=== PATIENT | female | born 1965 | race Caucasian/White ===

== ENCOUNTER → 2016-04-29 | Outpatient (CLI) | payer OTHER ==
[2015-12-18 15:15] VITALS: BP 118/63
[~2016-04-29] MED LIST: ACET325T9 PO; ALPR0.25 PO; DEXT30CA6 PO; DOCU-27 PO; FERR325T31 PO; LACT20SO PO; LEVO100T5 PO; METO10TA81 PO; PANT40TA3 PO; PROP60CA8 PO; RIFA550T PO; SPIR100T2 PO; SUCR1ORA2 PO; URSO300C3 PO; ZOLP10TA PO
[2016-04-29 07:49] LABS: BASO % 1 % (0-3); EOS % 1 % (0-3); HEMATOCRIT 41.4 % (36.0-47.0); HEMOGLOBIN 13.6 g/dL (12.0-15.5); LYMPH # 1.7 x10^3/uL (1.0-4.8); LYMPH % 31 % (24-48); MEAN CORPUSCULAR HEMOGLOBIN 30 pg (25-35); MEAN CORPUSCULAR HGB CONC 33 g/dL (31-37); MEAN CORPUSCULAR VOLUME 90 fL (79-100); MONO % 10 % (0-9); NEUT % 58 % (31-73); PLATELET COUNT 167 x10^3/uL (140-400); RED BLOOD COUNT 4.58 x10^6/uL (3.50-5.40); RED CELL DISTRIBUTION WIDTH 14.5 % (11.5-14.5); WHITE BLOOD COUNT 5.6 x10^3/uL (4.0-11.0)
[2016-04-29 07:59] LABS: INR 1.2 (0.8-1.1); PROTHROMBIN TIME PATIENT 14.3 SEC (11.7-14.0)
[2016-04-29 08:02] LABS: ALBUMIN 3.2 g/dL (3.4-5.0); ALBUMIN/GLOBULIN RATIO 0.8 (1.0-1.7); CALCIUM 9.4 mg/dL (8.5-10.1); CREATININE 0.9 mg/dL (0.6-1.0); GFR 65.8; POTASSIUM 3.5 mmol/L (3.5-5.1); TOTAL BILIRUBIN 0.7 mg/dL (0.2-1.0); TOTAL PROTEIN 7.4 g/dL (6.4-8.2)
== END | disposition home or self-care (01) ==
LOC: LAB 07:10
PROVIDERS: ATTEND Internal Medicine
DX: K74.69 Other cirrhosis of liver (principal); E03.9 Hypothyroidism, unspecified
CPT/HCPCS: 36415; 80053; 84443; 85027; 85610

== ENCOUNTER → 2016-05-19 | Outpatient (CLI) | payer OTHER ==
[2015-12-18 15:15] VITALS: BP 118/63
--- NOTE | 2016-05-20 15:15 | CARD ---
APPROVED REPORT EXAM: Two-dimensional and M-mode echocardiogram with Doppler and color Doppler. Other Information Quality : GoodHR: 81bpm Rhythm : NSR INDICATION Palpitations Short of air Echo Enhancing Agent Indication: Rule Out Septal Defect Agent/Amount Used: Agitated Saline 16mL 2D DIMENSIONS RVDd1.9 (2.9-3.5cm)Left Atrium(2D)2.9 (1.6-4.0cm) IVSd0.7 (0.7-1.1cm)Aortic Root(2D)2.3 (2.0-3.7cm) LVDd4.0 (3.9-5.9cm)LVOT Diameter2.0 (1.8-2.4cm) PWd0.8 (0.7-1.1cm)LVDs2.4 (2.5-4.0cm) FS (%) 38.8 %SV48.1 ml LVEF(%)69.0 (>50%) Aortic Valve AoV Peak Tello.163.0cm/sAoV VTI32.0cm AO Peak GR.10.6mmHgLVOT VTI 21.22cm AO Mean GR.5mmHg Mitral Valve MV E Hwhtjdll389.6cm/sMV E Peak Gr.4mmHg MV DECEL [id number] A Vkkvwydb69.1cm/s MV E Mean Gr.3mmHgE/A Ratio1.2 MV A [id number] TDI Lateral E' P. V15.10cm/sMedial E' P. V11.45cm/s E/Lateral E'6.7E/Medial E'8.9 Pulmonary Vein S1 Ncvazdtu83.1cm/sS2 Kqhfrjxu56.72cm/s D2 Szwmzopy05.7cm/sPVa usuiumqo31cvyl LEFT VENTRICLE The left ventricle is normal size. There is normal left ventricular wall thickness. The left ventricu lar systolic function is normal and the ejection fraction is within normal range. The Ejection Fracti on is 69%. There is normal LV segmental wall motion. The left ventricular diastolic function and fill ing is normal for age. RIGHT VENTRICLE The right ventricle is normal size. There is normal right ventricular wall thickness. The right ventr icular systolic function is normal. ATRIA The left atrium size is normal. The right atrium size is normal. Doppler suggests left to right inter atrial shunt. Injection of bubbles documented an interatrial shunt. AORTIC VALVE The aortic valve is mildly sclerotic. The aortic valve is trileaflet. Doppler and Color Flow revealed no significant aortic regurgitation. There is no significant aortic valvular stenosis. MITRAL VALVE Mitral annular calcification is mild. The mitral valve leaflets are thickened. There is no evidence o f mitral valve prolapse. There is no mitral valve stenosis. Doppler and Color Flow revealed trace chace ral regurgitation. TRICUSPID VALVE The tricuspid valve is normal in structure and function. Doppler and Color Flow revealed no tricuspid valve regurgitation noted. There is no pulmonary hypertension. PULMONIC VALVE Doppler and Color Flow revealed no pulmonic valvular regurgitation. GREAT VESSELS The aortic root is normal in size. The ascending aorta is normal in size. The pulmonary artery is nor mal. The IVC is normal in size and collapses >50% with inspiration. PERICARDIAL EFFUSION There is no evidence of significant pericardial effusion. Critical Notification Critical Value: No <Conclusion> The left ventricular systolic function is normal and the ejection fraction is within normal range. The Ejection Fraction is 69%. Doppler suggests left to right interatrial shunt. Injection of bubbles documented an interatrial shunt. The left atrium size is normal. The right atrium size is normal. The aortic valve is mildly sclerotic. The aortic valve is trileaflet. Mitral annular calcification is mild. The mitral valve leaflets are thickened. Doppler and Color Flow revealed trace mitral regurgitation. The tricuspid valve is normal in structure and function. Doppler and Color Flow revealed no pulmonic valvular regurgitation. The IVC is normal in size and collapses >50% with inspiration. There is no evidence of significant pericardial effusion.
== END | disposition home or self-care (01) ==
LOC: ECHO 10:30
PROVIDERS: ATTEND Internal Medicine Cardiovascular Disease
DX: I35.8 Other nonrheumatic aortic valve disorders (principal); I34.8 Other nonrheumatic mitral valve disorders; I34.0 Nonrheumatic mitral (valve) insufficiency; R06.02 Shortness of breath
CPT/HCPCS: C8929

== ENCOUNTER → 2016-09-03 | Outpatient (CLI) | payer OTHER ==
[2015-12-18 15:15] VITALS: BP 118/63
[~2016-09-03] MED LIST changes: +DOCU-109 PO; -DOCU-27 PO; +FERR-36 PO; -FERR325T31 PO; -RIFA550T PO; +RIFA550T4 PO; -SUCR1ORA2 PO; +SUCR1ORA5 PO; +URSO300C26 PO; -URSO300C3 PO
--- NOTE | 2016-09-03 09:28 | RAD ---
Limited ultrasound evaluation of the abdomen including duplex evaluation of the patient's TIPS shunt. 09/03/2016 Indication: Abdominal pain. Comparison study: Ultrasound evaluation of TIPS shunt February 27, 2016 Discussion: Ultrasound evaluation of the TIPS shunt was performed including color Doppler imaging spectral analysis. The TIPS shunt is grossly patent on color Doppler imaging. Portal end of TIPS shunt is a velocity measurement 41 cm/s, middle portion of the TIPS shunt has a velocity measurement of 82 cm/s. Hepatic end of the TIPS shunt has a velocity measurement of 102 cm/s. Hepatopedal flow is seen in the right and left portal veins. The main portal vein is also hepatopedal. Visualized hepatic veins are patent. There is decreased velocity within the portal and of the TIPS shunt. Normal TIPS velocities range from approximately 80-180 cm/s. Comparison is made to exam from February 27, 2016. At that time, velocities were low, and in fact slightly lower than on today's exam. No ascites is identified. Impression: No definitive sonographic evidence of significant stenosis within the TIPS shunt. Mildly low velocities are seen within the portal end of the TIPS shunt, similar to comparison exam.
== END | disposition home or self-care (01) ==
LOC: US 13:07
PROVIDERS: ATTEND Internal Medicine
DX: K74.69 Other cirrhosis of liver (principal); Z95.828 Presence of other vascular implants and grafts
CPT/HCPCS: 93975

== ENCOUNTER → 2016-09-06 | Outpatient (CLI) | payer OTHER ==
[2015-12-18 15:15] VITALS: BP 118/63
[2016-09-06 15:34] LABS: BASO % 0 % (0-3); EOS % 1 % (0-3); HEMATOCRIT 43.8 % (36.0-47.0); HEMOGLOBIN 14.6 g/dL (12.0-15.5); LYMPH # 1.3 x10^3/uL (1.0-4.8); LYMPH % 21 % (24-48); MEAN CORPUSCULAR HEMOGLOBIN 30 pg (25-35); MEAN CORPUSCULAR HGB CONC 33 g/dL (31-37); MEAN CORPUSCULAR VOLUME 89 fL (79-100); MONO % 10 % (0-9); NEUT % 69 % (31-73); PLATELET COUNT 172 x10^3/uL (140-400); RED BLOOD COUNT 4.92 x10^6/uL (3.50-5.40); RED CELL DISTRIBUTION WIDTH 14.4 % (11.5-14.5); WHITE BLOOD COUNT 6.3 x10^3/uL (4.0-11.0)
[2016-09-06 15:43] LABS: INR 1.2 (0.8-1.1); PROTHROMBIN TIME PATIENT 14.5 SEC (11.7-14.0)
[2016-09-06 15:49] LABS: ALBUMIN 3.1 g/dL (3.4-5.0); ALBUMIN/GLOBULIN RATIO 0.7 (1.0-1.7); CALCIUM 9.2 mg/dL (8.5-10.1); CREATININE 0.8 mg/dL (0.6-1.0); GFR 75.3; POTASSIUM 3.8 mmol/L (3.5-5.1); TOTAL BILIRUBIN 1.2 mg/dL (0.2-1.0); TOTAL PROTEIN 7.3 g/dL (6.4-8.2)
== END | disposition home or self-care (01) ==
LOC: LAB 14:59
PROVIDERS: ATTEND Internal Medicine
DX: R10.11 Right upper quadrant pain (principal); E03.9 Hypothyroidism, unspecified; K74.3 Primary biliary cirrhosis
CPT/HCPCS: 36415; 80053; 83690; 84443; 85027; 85610; 85651

== ENCOUNTER → 2016-09-15 | Outpatient (CLI) | payer OTHER ==
[2015-12-18 15:15] VITALS: BP 118/63
--- NOTE | 2016-09-15 10:05 | RAD ---
Indication:Recent evaluation of TIPS. Right upper quadrant pain. Chronic nausea. Abnormal liver function tests Grayscale images of the abdomen were obtained. Comparison none. Note is made of an hepatic duplex study demonstrating a patent TIPS 09/03/26 Liver:The surface of the liver has a somewhat irregular contour compatible with a cirrhotic liver. A focal mass lesion is not seen and the visualized liver. Patent TIPS is noted. Gallbladder:Surgically absent.. Common bile duct diameter of approximately 11 mm is likely a function of the postcholecystectomy state Spleen:Mildly enlarged but otherwise unremarkable Pancreas:The visualized head and proximal body appeared normal. The distal body and tail were partially obscured. The pancreatic duct measures approximately 2 mm Kidneys:No hydronephrosis or solid mass is seen associated with either Abdominal aorta and IVC:Normal Ancillary findings:None Impression:Contour irregularity associated with the liver compatible with a cirrhotic liver. Splenomegaly compatible with portal hypertension. Mildly prominent common bile duct likely a function of the postcholecystectomy state. Pancreas partially obscured
== END | disposition home or self-care (01) ==
LOC: US 08:48
PROVIDERS: ATTEND Internal Medicine
DX: R10.11 Right upper quadrant pain (principal); R79.89 Other specified abnormal findings of blood chemistry; Z90.49 Acquired absence of other specified parts of digestive tract; R16.1 Splenomegaly, not elsewhere classified
CPT/HCPCS: 76700

== ENCOUNTER → 2016-11-12 | Outpatient (CLI) | payer OTHER ==
[2015-12-18 15:15] VITALS: BP 118/63
[2016-11-12 14:48] LABS: BASO % 0 % (0-3); EOS % 0 % (0-3); HEMOGLOBIN 13.9 g/dL (12.0-15.5); LYMPH # 1.6 x10^3/uL (1.0-4.8); LYMPH % 26 % (24-48); MEAN CORPUSCULAR HEMOGLOBIN 30 pg (25-35); MEAN CORPUSCULAR HGB CONC 35 g/dL (31-37); MEAN CORPUSCULAR VOLUME 87 fL (79-100); MONO % 7 % (0-9); NEUT % 67 % (31-73); PLATELET COUNT 154 x10^3/uL (140-400); RED CELL DISTRIBUTION WIDTH 13.8 % (11.5-14.5); WHITE BLOOD COUNT 6.3 x10^3/uL (4.0-11.0)
[2016-11-12 15:00] LABS: ALBUMIN 3.2 g/dL (3.4-5.0); ALBUMIN/GLOBULIN RATIO 0.8 (1.0-1.7); CALCIUM 8.9 mg/dL (8.5-10.1); CREATININE 0.8 mg/dL (0.6-1.0); GFR 75.3; POTASSIUM 3.8 mmol/L (3.5-5.1); TOTAL BILIRUBIN 0.5 mg/dL (0.2-1.0); TOTAL PROTEIN 7.2 g/dL (6.4-8.2)
[2016-11-12 15:05] LABS: INR 1.2 (0.8-1.1); PROTHROMBIN TIME PATIENT 14.7 SEC (11.7-14.0)
== END | disposition home or self-care (01) ==
LOC: LAB 14:15
PROVIDERS: ATTEND Internal Medicine
DX: E03.9 Hypothyroidism, unspecified (principal)
CPT/HCPCS: 36415; 80053; 84443; 85025; 85610

== ENCOUNTER → 2016-11-26 | Outpatient (CLI) | payer OTHER ==
[2015-12-18 15:15] VITALS: BP 118/63
[2016-11-26 08:21] LABS: BASO % 0 % (0-3); EOS % 2 % (0-3); HEMATOCRIT 43.9 % (36.0-47.0); HEMOGLOBIN 14.8 g/dL (12.0-15.5); LYMPH # 1.3 x10^3/uL (1.0-4.8); LYMPH % 25 % (24-48); MEAN CORPUSCULAR HEMOGLOBIN 30 pg (25-35); MEAN CORPUSCULAR HGB CONC 34 g/dL (31-37); MEAN CORPUSCULAR VOLUME 89 fL (79-100); MONO % 9 % (0-9); NEUT % 65 % (31-73); PLATELET COUNT 163 x10^3/uL (140-400); RED BLOOD COUNT 4.92 x10^6/uL (3.50-5.40); RED CELL DISTRIBUTION WIDTH 14.4 % (11.5-14.5); WHITE BLOOD COUNT 5.1 x10^3/uL (4.0-11.0)
[2016-11-26 08:30] LABS: INR 1.2 (0.8-1.1)
[2016-11-26 08:42] LABS: ALBUMIN 3.1 g/dL (3.4-5.0); ALBUMIN/GLOBULIN RATIO 0.7 (1.0-1.7); CALCIUM 9.6 mg/dL (8.5-10.1); CREATININE 0.9 mg/dL (0.6-1.0); GFR 65.8; POTASSIUM 3.9 mmol/L (3.5-5.1); TOTAL BILIRUBIN 0.8 mg/dL (0.2-1.0); TOTAL PROTEIN 7.3 g/dL (6.4-8.2)
[2016-11-26 15:29] LABS: HEP A TOTAL ABDY Negative (Negative); HEP B SURFACE ABDY Reactive (.)
[2016-11-30 20:13] LABS: VITAMIN D25(OH)TOTAL 23.2 ng/mL (30.0-100.0)
== END | disposition home or self-care (01) ==
LOC: LAB 07:55
PROVIDERS: ATTEND Internal Medicine
DX: K74.3 Primary biliary cirrhosis (principal)
CPT/HCPCS: 36415; 80053; 82105; 82306; 85025; 85610; 86706; 86708; 87340; 87341

== ENCOUNTER → 2016-11-27 | Outpatient (CLI) | payer OTHER ==
[2015-12-18 15:15] VITALS: BP 118/63
[2016-11-29 10:14] LABS: GLUCOSE,URINE NEGATIVE (NEG)
[2016-11-29 10:15] LABS: BILIRUBIN,URINE NEGATIVE (NEG); NITRITE,URINE POSITIVE (NEG); PROTEIN,URINE NEGATIVE (NEG-TRACE); RBC,URINE 0 /HPF (0-2); UROBILINOGEN,URINE 0.2 mg/dL (0.2 mg/dL)
[2016-11-29 10:16] LABS: BACTERIA,URINE MANY /HPF (0-FEW); SQUAMOUS EPITHELIAL CELL,UR FEW /LPF
== END | disposition home or self-care (01) ==
LOC: LAB 11:58
PROVIDERS: ATTEND Internal Medicine
DX: R30.0 Dysuria (principal)
CPT/HCPCS: 81001; 87086

== ENCOUNTER 2017-01-08 13:15 | Emergency (ER) | payer OTHER ==
[~2017-01-08] VITALS: Ht 160 cm; Wt 60.3 kg
[2017-01-08 13:19] VITALS: BP 135/63
--- NOTE | 2017-01-08 13:45 | PHYS DOC ---
Past Medical History Past Medical History: Hypothyroid, Liver Disease, Other Additional Past Medical Histor: ENCEPHODERMALOPATHY, SCLERODERMA,PBC, ESOPHAGEAL VARCIES,TIMOTHY Past Surgical History: Cholecystectomy, , Tubal ligation Additional Past Surgical Histo: TIPS,BREAST AUGUMENTATION, ESOPHAGEAL COILS/ BANDS Alcohol Use: None Drug Use: None Adult General Chief Complaint Chief Complaint: PAIN ON URINATION HPI HPI Patient is a 51 year old female presenting to the emergency department for evaluation of right flank pain lower abdominal and back pain along with dysuria and foul-smelling urine. It with a 10 day course of ciprofloxacin last month that she had an abnormal urinalysis on November 29. The culture results it throughout Citrobacter friendii. According to the sensitivities it is sensitive to ciprofloxacin. Review of Systems Review of Systems Constitutional: Denies fever or chills [] GI: + abdominal pain : + dysuria Musculoskeletal: + back pain All other systems were reviewed and found to be within normal limits, except as documented in this note. Allergies Allergies Allergies Coded Allergies Type Severity Reaction Last Updated Verified Iodinated Contrast- Oral and IV Dye Allergy Severe throat swelling 08/07/15 Yes Sulfa (Sulfonamide Antibiotics) Allergy Intermediate rash 08/07/15 Yes meperidine Adverse Reaction Intermediate n/v 08/07/15 Yes Uncoded Allergies Type Severity Reaction Last Updated Verified BLOOD TRANSFUSION Adverse Reaction Intermediate RASH, FEVER 07/02/15 Physical Exam Physical Exam Constitutional: Well developed, well nourished, no acute distress, non-toxic appearance. [] \ Current Patient Data Vital Signs Vital Signs Date Time Temp Pulse Resp B/P (MAP) Pulse Ox O2 Delivery O2 Flow Rate FiO2 01/08/17 13:19 98.3 83 14 99 Room Air 98.3 Lab Values Laboratory Tests Test 01/08/17 13:40 Urine Collection Type Unknown Urine Color Yellow Urine Clarity Clear Urine pH 6.5 Urine Specific Coldiron 1.020 Urine Protein Negative mg/dL (NEG-TRACE) Urine Glucose (UA) Negative mg/dL (NEG) Urine Ketones (Stick) Negative mg/dL (NEG) Urine Blood Negative (NEG) Urine Nitrite Negative (NEG) Urine Bilirubin Negative (NEG) Urine Urobilinogen Dipstick 0.2 mg/dL (0.2 mg/dL) Urine Leukocyte Esterase Small (NEG) Urine RBC 0 /HPF (0-2) Urine WBC 11-20 /HPF (0-4) Urine Squamous Epithelial Cells Few /LPF Urine Bacteria Moderate /HPF (0-FEW) Urine Mucus Mod /LPF EKG EKG [] Radiology/Procedures Radiology/Procedures [] Course & Med Decision Making Course & Med Decision Making UA consistent with urinary tract infection. Will start on another 10 day course of Cipro provide Pyridium encourage fluids and appropriate follow-up. Dragon Disclaimer Dragon Disclaimer This electronic medical record was generated, in whole or in part, using a voice recognition dictation system. Departure Departure Impression: Primary Impression: UTI (urinary tract infection) Disposition: HOME, SELF-CARE Condition: STABLE Referrals: TITO VERA MD (PCP) Patient Instructions: Urinary Tract Infection Scripts Phenazopyridine Hcl (PYRIDIUM) 200 Mg Tablet 200 MG PO TID Y for dysuria, #6 TAB Prov: DARIUSZ KANG DO 01/08/17 Ciprofloxacin Hcl (CIPRO) 500 Mg Tablet 1 TAB PO BID, #20 TAB Prov: DARIUSZ KANG DO 01/08/17 Problem Qualifiers Primary Impression: UTI (urinary tract infection) Urinary tract infection type: site unspecified Hematuria presence: without hematuria Qualified Codes: N39.0 - Urinary tract infection, site not specified DARIUSZ KANG DO Jan 08, 2017 13:45
[2017-01-08 13:51] LABS: BILIRUBIN,URINE NEGATIVE (NEG); GLUCOSE,URINE NEGATIVE (NEG); NITRITE,URINE NEGATIVE (NEG); PH,URINE 6.5; PROTEIN,URINE NEGATIVE (NEG-TRACE); UROBILINOGEN,URINE 0.2 mg/dL (0.2 mg/dL)
[2017-01-08 14:03] LABS: BACTERIA,URINE MODERATE /HPF (0-FEW); RBC,URINE 0 /HPF (0-2); SQUAMOUS EPITHELIAL CELL,UR FEW /LPF
[2017-01-08] MEDS ORDERED: PHEN-318 PO (14:44)
[2017-01-08] MEDS ORDERED: CIPR500T94 PO (14:44)
[2017-01-08 15:04] LABS: BASO # 0.1 x10^3/uL (0.0-0.2); BASO % 2 % (0-3); EOS % 1 % (0-3); HEMATOCRIT 39.6 % (36.0-47.0); HEMOGLOBIN 13.3 g/dL (12.0-15.5); LYMPH # 1.5 x10^3/uL (1.0-4.8); LYMPH % 28 % (24-48); MEAN CORPUSCULAR HEMOGLOBIN 30 pg (25-35); MEAN CORPUSCULAR HGB CONC 34 g/dL (31-37); MEAN CORPUSCULAR VOLUME 90 fL (79-100); MONO % 9 % (0-9); NEUT % 60 % (31-73); PLATELET COUNT 139 x10^3/uL (140-400); RED BLOOD COUNT 4.42 x10^6/uL (3.50-5.40); RED CELL DISTRIBUTION WIDTH 14.2 % (11.5-14.5); WHITE BLOOD COUNT 5.2 x10^3/uL (4.0-11.0)
[2017-01-08 15:11] LABS: CREATININE 0.8 mg/dL (0.6-1.0); GFR 75.3; POTASSIUM 3.6 mmol/L (3.5-5.1)
[2017-01-08 15:17] LABS: ALBUMIN 3.1 g/dL (3.4-5.0); ALBUMIN/GLOBULIN RATIO 0.8 (1.0-1.7); TOTAL BILIRUBIN 0.4 mg/dL (0.2-1.0)
== END 2017-01-08 15:27 | disposition home or self-care (01) ==
LOC: ER 13:15
DX: N39.0 Urinary tract infection, site not specified (principal); E03.9 Hypothyroidism, unspecified; Z88.2 Allergy status to sulfonamides; Z90.49 Acquired absence of other specified parts of digestive tract; Z98.51 Tubal ligation status; Z91.041 Radiographic dye allergy status; Z88.8 Allergy status to other drugs, medicaments and biological substances
CPT/HCPCS: 36415; 80053; 81001; 83690; 85025; 87086; 87186; 99284

== ENCOUNTER → 2017-02-15 | Outpatient (CLI) | payer OTHER ==
[~2017-02-15] MED LIST changes: +CIPR500T94 PO; +PHEN-318 PO
[2017-02-15 14:38] LABS: BILIRUBIN,URINE NEGATIVE (NEG); GLUCOSE,URINE NEGATIVE (NEG); NITRITE,URINE POSITIVE (NEG); PH,URINE 6.5; PROTEIN,URINE NEGATIVE (NEG-TRACE); UROBILINOGEN,URINE 0.2 mg/dL (0.2 mg/dL)
[2017-02-15 14:53] LABS: BACTERIA,URINE MANY /HPF (0-FEW); RBC,URINE 0 /HPF (0-2); SQUAMOUS EPITHELIAL CELL,UR FEW /LPF; WBC,URINE OCC /HPF (0-4)
== END | disposition home or self-care (01) ==
LOC: LAB 11:34
PROVIDERS: ATTEND Internal Medicine
DX: R30.0 Dysuria (principal)
CPT/HCPCS: 81001; 87086

== ENCOUNTER 2017-03-11 13:33 | Emergency (ER) | payer OTHER | END 2017-03-11 14:50 | disposition home or self-care (01) | LOC: ER 13:33 | DX: S30.810A Abrasion of lower back and pelvis, initial encounter (principal); S20.211A Contusion of right front wall of thorax, initial encounter; E03.9 Hypothyroidism, unspecified; Z88.5 Allergy status to narcotic agent; Z88.2 Allergy status to sulfonamides; Z91.041 Radiographic dye allergy status; W00.2XXA Other fall from one level to another due to ice and snow, initial encounter; Y93.89 Activity, other specified; Y92.481 Parking lot as the place of occurrence of the external cause; Y99.8 Other external cause status | CPT/HCPCS: 71101; 72100; 73080; 99284 ==

== ENCOUNTER → 2017-04-13 | Outpatient (CLI) | payer OTHER ==
[2017-04-13 08:11] LABS: ADD MAN DIFF? NO
[2017-04-13 08:27] LABS: BASO % 0 % (0-3); EOS # 0.1 x10^3/uL (0.0-0.7); EOS % 2 % (0-3); HEMOGLOBIN 14.2 g/dL (12.0-15.5); LYMPH # 1.9 x10^3/uL (1.0-4.8); LYMPH % 39 % (24-48); MEAN CORPUSCULAR HEMOGLOBIN 29 pg (25-35); MEAN CORPUSCULAR HGB CONC 33 g/dL (31-37); MEAN CORPUSCULAR VOLUME 89 fL (79-100); MONO # 0.5 x10^3/uL (0.0-1.1); MONO % 10 % (0-9); NEUT # 2.4 x10^3uL (1.8-7.7); NEUT % 49 % (31-73); PLATELET COUNT 163 x10^3/uL (140-400); RED BLOOD COUNT 4.82 x10^6/uL (3.50-5.40); RED CELL DISTRIBUTION WIDTH 14.5 % (11.5-14.5); WHITE BLOOD COUNT 4.9 x10^3/uL (4.0-11.0)
[2017-04-13 08:39] LABS: ALBUMIN 3.3 g/dL (3.4-5.0); ALBUMIN/GLOBULIN RATIO 0.8 (1.0-1.7); ALK PHOS 136 U/L (46-116); ALT (SGPT) 32 U/L (14-59); ANION GAP 10 (6-14); AST (SGOT) 30 U/L (15-37); BLOOD UREA NITROGEN 10 mg/dL (7-20); BUN/CREATININE RATIO 14 (6-20); CALCIUM 9.4 mg/dL (8.5-10.1); CARBON DIOXIDE 26 mmol/L (21-32); CHLORIDE 105 mmol/L (98-107); CREATININE 0.7 mg/dL (0.6-1.0); GFR 87.5; GLUCOSE 101 mg/dL (70-99); POTASSIUM 3.7 mmol/L (3.5-5.1); SODIUM 141 mmol/L (136-145); TOTAL BILIRUBIN 0.5 mg/dL (0.2-1.0); TOTAL PROTEIN 7.5 g/dL (6.4-8.2)
[2017-04-13 08:47] LABS: INR 1.2 (0.8-1.1)
[2017-04-13 16:40] LABS: BILIRUBIN,URINE NEGATIVE (NEG); CLARITY,URINE CLEAR; COLOR,URINE YELLOW; GLUCOSE,URINE NEGATIVE (NEG); NITRITE,URINE NEGATIVE (NEG); PROTEIN,URINE NEGATIVE (NEG-TRACE); UROBILINOGEN,URINE 0.2 mg/dL (0.2 mg/dL)
[2017-04-13 16:53] LABS: BACTERIA,URINE MANY /HPF (0-FEW); RBC,URINE 0 /HPF (0-2); SQUAMOUS EPITHELIAL CELL,UR FEW /LPF
[2017-04-13 20:12] LABS: AFPT MARKER 2.9 ng/mL (0.0-8.3)
== END | disposition home or self-care (01) ==
LOC: LAB 07:38
DX: K74.3 Primary biliary cirrhosis (principal)
CPT/HCPCS: 36415; 80053; 81001; 82105; 85025; 85610; 87086; 87186

== ENCOUNTER → 2017-05-02 | Outpatient (CLI) | payer OTHER | END | disposition home or self-care (01) | LOC: KCIC DEXA 12:02 | DX: Z13.820 Encounter for screening for osteoporosis (principal); M85.88 Other specified disorders of bone density and structure, other site; K74.60 Unspecified cirrhosis of liver; K83.0 Cholangitis | CPT/HCPCS: 77080 ==

== ENCOUNTER → 2017-05-05 | Outpatient (CLI) | payer OTHER | END | disposition home or self-care (01) | LOC: US 06:58 | DX: K74.3 Primary biliary cirrhosis (principal) | CPT/HCPCS: 93976 ==

== ENCOUNTER → 2017-10-14 | Outpatient (CLI) | payer OTHER ==
[2017-03-11 13:35] VITALS: BP 151/76
[~2017-10-14] MED LIST changes: -SPIR100T2 PO; +SPIR100T4 PO
[2017-10-14 18:14] LABS: BASO % 0 % (0-3); EOS # 0.1 x10^3/uL (0.0-0.7); EOS % 1 % (0-3); HEMATOCRIT 44.4 % (36.0-47.0); LYMPH # 1.6 x10^3/uL (1.0-4.8); LYMPH % 36 % (24-48); MEAN CORPUSCULAR HEMOGLOBIN 29 pg (25-35); MEAN CORPUSCULAR HGB CONC 34 g/dL (31-37); MEAN CORPUSCULAR VOLUME 86 fL (79-100); MONO # 0.4 x10^3/uL (0.0-1.1); MONO % 8 % (0-9); NEUT # 2.4 x10^3uL (1.8-7.7); NEUT % 54 % (31-73); PLATELET COUNT 171 x10^3/uL (140-400); RED BLOOD COUNT 5.18 x10^6/uL (3.50-5.40); RED CELL DISTRIBUTION WIDTH 14.2 % (11.5-14.5); WHITE BLOOD COUNT 4.5 x10^3/uL (4.0-11.0)
[2017-10-14 18:23] LABS: PROTHROMBIN TIME PATIENT 14.2 SEC (11.7-14.0)
[2017-10-14 18:44] LABS: ALBUMIN 3.8 g/dL (3.4-5.0); CALCIUM 9.8 mg/dL (8.5-10.1); CREATININE 0.7 mg/dL (0.6-1.0); GFR 87.5; POTASSIUM 3.7 mmol/L (3.5-5.1); TOTAL BILIRUBIN 0.7 mg/dL (0.2-1.0); TOTAL PROTEIN 7.7 g/dL (6.4-8.2)
== END | disposition home or self-care (01) ==
LOC: LAB 17:40
PROVIDERS: ATTEND Nurse Practitioner Family
DX: K72.90 Hepatic failure, unspecified without coma (principal); I10 Essential (primary) hypertension; E03.9 Hypothyroidism, unspecified; K21.9 Gastro-esophageal reflux disease without esophagitis; Z86.2 Personal history of diseases of the blood and blood-forming organs and certain disorders involving the immune mechanism; Z87.891 Personal history of nicotine dependence; Z87.11 Personal history of peptic ulcer disease; Z90.49 Acquired absence of other specified parts of digestive tract; Z88.2 Allergy status to sulfonamides; Z88.5 Allergy status to narcotic agent; Z88.8 Allergy status to other drugs, medicaments and biological substances; Z82.49 Family history of ischemic heart disease and other diseases of the circulatory system
CPT/HCPCS: 36415; 80053; 82105; 82140; 85025; 85610

== ENCOUNTER → 2018-03-06 | Outpatient (CLI) | payer OTHER ==
[2018-02-27 18:56] VITALS: BP 144/70
[~2018-03-06] MED LIST changes: +LEVO88TA4 PO
== END | disposition home or self-care (01) ==
LOC: LAB 10:10
PROVIDERS: ATTEND Internal Medicine
DX: E03.9 Hypothyroidism, unspecified (principal); K74.69 Other cirrhosis of liver
CPT/HCPCS: 36415; 82140

== ENCOUNTER → 2018-03-15 | Outpatient (CLI) | payer OTHER ==
[2018-02-27 18:56] VITALS: BP 144/70
[~2018-03-15] MED LIST changes: -PANT40TA3 PO; +PANT40TA77 PO
--- NOTE | 2018-03-15 17:18 | RAD ---
Examination: Ultrasound hepatic duplex HISTORY: History of cirrhosis, TIPS COMPARISON: 09/03/2016 FINDINGS: The velocity in the portal end of the TIPS measures 29 cm/s, midportion 33 cm/s and in the hepatic end of the TIPS measures 30 cm/s. The hepatic veins are patent The portal veins are patent with hepatopetal flow within. The diameter of the main portal vein is 8.9 mm Cirrhotic appearance of the liver IMPRESSION: 1. Cirrhosis of the liver. 2. TIPS is patent. Electronically signed by: Andrew Oropeza MD (03/15/2018 5:13 PM) [facility]
== END | disposition home or self-care (01) ==
LOC: US 12:46
PROVIDERS: ATTEND Internal Medicine
DX: K74.3 Primary biliary cirrhosis (principal)
CPT/HCPCS: 93975

== ENCOUNTER → 2018-03-15 | Outpatient (CLI) | payer OTHER ==
[2018-02-27 18:56] VITALS: BP 144/70
[2018-03-15 14:16] LABS: CHOLESTEROL/HDL RATIO 1.9
--- NOTE | 2018-03-15 15:08 | CARD ---
MR#: [id number] Date of Study: 03/15/2018 Ordering Physician: SHANEKA KINCAID, Referring Physician: SHANEKA KINCAID, Tech: Raven Hernandez [facility] APPROVED REPORT EXAM: Two-dimensional and M-mode echocardiogram with Doppler and color Doppler. Other Information Quality : GoodHR: 65bpm Rhythm : NSR INDICATION Dyspnea 2D DIMENSIONS RVDd2.9 (2.9-3.5cm)Left Atrium(2D)3.4 (1.6-4.0cm) IVSd0.9 (0.7-1.1cm)Aortic Root(2D)2.5 (2.0-3.7cm) LVDd4.0 (3.9-5.9cm)LVOT Diameter1.8 (1.8-2.4cm) PWd0.9 (0.7-1.1cm)LVDs2.4 (2.5-4.0cm) FS (%) 39.0 %SV48.0 ml LVEF(%)70.0 (>50%) M-Mode DIMENSIONS Left Atrium(MM)3.36 (2.5-4.0cm)Aortic Root2.45 (2.2-3.7cm) Aortic Valve AoV Peak Tello.163.5cm/sAoV VTI31.6cm AO Peak GR.10.7mmHgLVOT Peak Tello.119.1cm/s AO Mean GR.5mmHgAVA (VMAX)1.78cm2 BRIGID (VTI)1.80cm2 Mitral Valve MV E Xmfrhctn663.9cm/sMV DECEL IWHP070yd MV A Cufjqjqm68.4cm/sE/A Ratio1.6 MV A Nloxoneo12or TDI E/Medial E'0.1 Pulmonary Valve PV Peak Ktqjzptv087.4cm/s LEFT VENTRICLE The left ventricle is normal size. There is normal left ventricular wall thickness. The left ventricu lar systolic function is normal. The Ejection Fraction is 65-70%. There is normal LV segmental wall m otion. The left ventricular diastolic function and filling is normal for age. RIGHT VENTRICLE The right ventricle is normal size. There is normal right ventricular wall thickness. The right ventr icular systolic function is normal. ATRIA The left atrium size is normal. The right atrium size is normal. The interatrial septum is intact wit h no evidence for an atrial septal defect or patent foramen ovale as noted on 2-D or Doppler imaging. AORTIC VALVE The aortic valve is normal in structure and function. The aortic valve is trileaflet. Doppler and Col or Flow revealed no significant aortic regurgitation. There is no significant aortic valvular stenosi s. MITRAL VALVE The mitral valve is normal in structure and function. There is no evidence of mitral valve prolapse. There is no mitral valve stenosis. Doppler and Color-flow revealed trace mitral regurgitation. TRICUSPID VALVE The tricuspid valve is normal in structure and function. Doppler and Color Flow revealed trace tricus pid regurgitation. There is no tricuspid valve prolapse or vegetation. There is no tricuspid valve st enosis. PULMONIC VALVE The pulmonary valve is normal in structure and function. Doppler and Color Flow revealed no pulmonic valvular regurgitation. There is no pulmonic valvular stenosis. GREAT VESSELS The aortic root is normal in size. The ascending aorta is normal in size. The IVC is normal in size a nd collapses >50% with inspiration. PERICARDIAL EFFUSION There is no evidence of significant pericardial effusion. Critical Notification Critical Value: No <Conclusion> The left ventricular systolic function is normal. The Ejection Fraction is 65-70%. There is normal LV segmental wall motion. Trace mitral regurgitation. Trace tricuspid regurgitation. There is no evidence of significant pericardial effusion. Signed by : Rashad Reis, Electronically Approved : 03/15/2018 15:05:57
== END | disposition home or self-care (01) ==
LOC: ECHO 12:52
PROVIDERS: ATTEND Internal Medicine Cardiovascular Disease
DX: R06.00 Dyspnea, unspecified (principal); Z82.49 Family history of ischemic heart disease and other diseases of the circulatory system; Z79.899 Other long term (current) drug therapy; Z87.891 Personal history of nicotine dependence
CPT/HCPCS: 36415; 80061; 83721; 93306

== ENCOUNTER → 2018-03-15 | Outpatient (CLI) | payer OTHER ==
[2018-02-27 18:56] VITALS: BP 144/70
== END | disposition home or self-care (01) ==
LOC: LAB 13:07
PROVIDERS: ATTEND Internal Medicine
DX: K74.60 Unspecified cirrhosis of liver (principal)
CPT/HCPCS: 36415; 82140

== ENCOUNTER → 2018-03-22 | Outpatient (CLI) | payer OTHER ==
[2018-02-27 18:56] VITALS: BP 144/70
[~2018-03-22] MED LIST changes: +PANT40TA3 PO; -PANT40TA77 PO
== END | disposition home or self-care (01) ==
LOC: LAB 17:03
PROVIDERS: ATTEND Internal Medicine
DX: K74.60 Unspecified cirrhosis of liver (principal)
CPT/HCPCS: 36415; 82140

== ENCOUNTER → 2018-08-07 | Outpatient (CLI) | payer OTHER ==
[2018-02-27 18:56] VITALS: BP 144/70
[2018-08-07 07:56] LABS: BASO % 1 % (0-3); EOS # 0.1 x10^3/uL (0.0-0.7); EOS % 1 % (0-3); HEMATOCRIT 44.3 % (36.0-47.0); HEMOGLOBIN 14.6 g/dL (12.0-15.5); LYMPH # 1.3 x10^3/uL (1.0-4.8); LYMPH % 32 % (24-48); MEAN CORPUSCULAR HEMOGLOBIN 28 pg (25-35); MEAN CORPUSCULAR HGB CONC 33 g/dL (31-37); MEAN CORPUSCULAR VOLUME 86 fL (79-100); MONO # 0.3 x10^3/uL (0.0-1.1); MONO % 8 % (0-9); NEUT # 2.3 x10^3uL (1.8-7.7); NEUT % 58 % (31-73); PLATELET COUNT 162 x10^3/uL (140-400); RED BLOOD COUNT 5.17 x10^6/uL (3.50-5.40)
[2018-08-07 08:05] LABS: PROTHROMBIN TIME PATIENT 12.6 SEC (11.7-14.0)
[2018-08-07 08:23] LABS: ALBUMIN 4.2 g/dL (3.4-5.0); ALBUMIN/GLOBULIN RATIO 1.1 (1.0-1.7); CALCIUM 9.4 mg/dL (8.5-10.1); CREATININE 0.9 mg/dL (0.6-1.0); GFR 65.2; POTASSIUM 3.7 mmol/L (3.5-5.1); TOTAL BILIRUBIN 0.5 mg/dL (0.2-1.0); TOTAL PROTEIN 8.1 g/dL (6.4-8.2)
[2018-08-07 19:12] LABS: AFPT MARKER 3.7 ng/mL (0.0-8.3); THYROXINE 10.4 ug/dL (4.5-12.0)
[2018-08-09 18:10] LABS: ANA INTERP Negative (.)
== END | disposition home or self-care (01) ==
LOC: LAB 07:29
PROVIDERS: ATTEND Internal Medicine
DX: E03.9 Hypothyroidism, unspecified (principal); R20.2 Paresthesia of skin
CPT/HCPCS: 36415; 80053; 82105; 82140; 82306; 82607; 82728; 84436; 84443; 85025; 85610; 86038; 86703; 86705; 86709; 86803; 87340

== ENCOUNTER → 2018-09-24 | Outpatient (CLI) | payer OTHER ==
[2018-02-27 18:56] VITALS: BP 144/70
[~2018-09-24] MED LIST changes: -PANT40TA3 PO; +PANT40TA77 PO
[2018-09-24 11:29] LABS: BILIRUBIN,URINE NEGATIVE (NEG); CLARITY,URINE CLEAR; COLOR,URINE YELLOW; NITRITE,URINE NEGATIVE (NEG); PROTEIN,URINE NEGATIVE (NEG-TRACE); UROBILINOGEN,URINE 0.2 mg/dL (0.2 mg/dL)
[2018-09-24 11:33] LABS: SQUAMOUS EPITHELIAL CELL,UR MOD /LPF
[2018-09-24 11:36] LABS: BACTERIA,URINE MODERATE /HPF (0-FEW); RBC,URINE 0 /HPF (0-2)
== END | disposition home or self-care (01) ==
LOC: LAB 11:18
PROVIDERS: ATTEND Nurse Practitioner Family
DX: N39.0 Urinary tract infection, site not specified (principal)
CPT/HCPCS: 81001; 87086

== ENCOUNTER → 2018-12-05 | Outpatient (CLI) | payer OTHER ==
[2018-02-27 18:56] VITALS: BP 144/70
[~2018-12-05] MED LIST changes: +PROP60CA36 PO; -PROP60CA8 PO
[2018-12-05 09:47] LABS: BASO % 1 % (0-3); EOS % 1 % (0-3); HEMATOCRIT 43.4 % (36.0-47.0); HEMOGLOBIN 14.7 g/dL (12.0-15.5); LYMPH # 1.6 x10^3/uL (1.0-4.8); LYMPH % 32 % (24-48); MEAN CORPUSCULAR HEMOGLOBIN 29 pg (25-35); MEAN CORPUSCULAR HGB CONC 34 g/dL (31-37); MEAN CORPUSCULAR VOLUME 84 fL (79-100); MONO # 0.4 x10^3/uL (0.0-1.1); MONO % 8 % (0-9); NEUT % 59 % (31-73); PLATELET COUNT 166 x10^3/uL (140-400); RED BLOOD COUNT 5.15 x10^6/uL (3.50-5.40); RED CELL DISTRIBUTION WIDTH 14.5 % (11.5-14.5); WHITE BLOOD COUNT 5.1 x10^3/uL (4.0-11.0)
[2018-12-05 09:59] LABS: ALBUMIN 4.4 g/dL (3.4-5.0); ALBUMIN/GLOBULIN RATIO 1.1 (1.0-1.7); CALCIUM 9.5 mg/dL (8.5-10.1); CREATININE 0.9 mg/dL (0.6-1.0); GFR 65.2; POTASSIUM 3.5 mmol/L (3.5-5.1); TOTAL BILIRUBIN 0.4 mg/dL (0.2-1.0); TOTAL PROTEIN 8.5 g/dL (6.4-8.2)
[2018-12-05 10:04] LABS: PROTHROMBIN TIME PATIENT 12.8 SEC (11.7-14.0)
[2018-12-06 05:10] LABS: AFPT MARKER 4.1 ng/mL (0.0-8.3)
[2018-12-07 15:15] LABS: GLIA IGA 2 units (0-19); GLIA IGG 3 units (0-19); TRANSGLUTAMINASE IGA AB <2 U/mL (0-3); TRANSGLUTAMINASE IGG AB <2 U/mL (0-5)
== END | disposition home or self-care (01) ==
LOC: LAB 09:25
PROVIDERS: ATTEND Internal Medicine
DX: S60.529A Blister (nonthermal) of unspecified hand, initial encounter (principal); K74.3 Primary biliary cirrhosis; K74.69 Other cirrhosis of liver; Z95.828 Presence of other vascular implants and grafts; X58.XXXA Exposure to other specified factors, initial encounter; Y93.89 Activity, other specified; Y92.89 Other specified places as the place of occurrence of the external cause; Y99.8 Other external cause status
CPT/HCPCS: 36415; 80053; 82105; 83516; 85025; 85610

== ENCOUNTER → 2018-12-26 | Outpatient (CLI) | payer OTHER ==
[2018-02-27 18:56] VITALS: BP 144/70
--- NOTE | 2018-12-26 11:00 | RAD ---
US HEPATIC DUPLEX History: Evaluate TIPS Comparison: March 15, 2018 Technique: Sonographic examination of the hepatic vasculature and upper abdominal structures with grayscale and Doppler. Findings: Heterogeneous nodular liver. The liver measures 11.2 cm. Increased diameter of the portal vein measures 1.2 cm. Patent right and left portal veins. Decreased velocity and color Doppler flow within the TIPS proximal TIPS velocity 14 cm/s, mid 13 cm/s and distal 17 cm/s (compared to 29, 33 and 30 cm/s). Patent hepatic veins. No evidence of ascites or recanalized umbilical vein. The spleen is not enlarged measures 11.2 cm. IMPRESSION: 1. Decreased flow within the TIPS compared to prior, may indicate in-stent stenosis. 2. Heterogeneous nodular liver, compatible with cirrhosis. Electronically signed by: Zoran Koo DO (12/26/2018 10:57 AM) [facility]
== END | disposition home or self-care (01) ==
LOC: US 09:48
PROVIDERS: ATTEND Internal Medicine
DX: K74.3 Primary biliary cirrhosis (principal); K74.69 Other cirrhosis of liver; Z95.828 Presence of other vascular implants and grafts
CPT/HCPCS: 93975

== ENCOUNTER → 2019-01-05 | Outpatient (CLI) | payer OTHER ==
[2018-02-27 18:56] VITALS: BP 144/70
[~2019-01-05] MED LIST changes: +CONTRAST GIVEN. MC PRN; +IOHEXOL 300 MG/ML 100ML VIAL. IV ONE; +diphenhydrAMINE HCL 25 MG CAPSULE PO ONE
--- NOTE | 2019-01-05 16:08 | RAD ---
CT study abdomen with and without contrast Clinical indications: Cirrhosis. Biliary cholangitis. Status post TIPS procedure. Liver transplant 2009. TECHNIQUE: Noncontrast helical CT scanning of the abdomen from the hemidiaphragms down to the iliac crests was performed. Following IV infusion of 75 cc of Omnipaque 300, multiphasic repeat helical CT scanning of the abdomen was performed. No GI contrast was administered. This may decrease the sensitivity to detect GI tract pathology. PQRS compliance Statement One or more of the following individualized dose reduction techniques were utilized for this study: 1. Automated exposure control 2. Adjustment of the mA and/or kV according to patient size 3. Use of iterative reconstruction technique COMPARISON: CT study of the abdomen and pelvis dated October 21, 2015. FINDINGS: Again seen is a linear scar within the anterior aspect of the medial segment left lobe liver which is unchanged. No new hepatic lesions are seen. The liver contour is corrugated consistent with cirrhosis. Spleen is homogeneous and measures 11.1 cm in length which is unchanged. No focal enlargement of the pancreas is seen. The gallbladder is surgically absent. No dilatation of the extra hepatic biliary tree is seen. No adrenal mass is evident. Both kidneys are normal without renal mass or hydronephrosis. No focal aneurysmal dilatation of the abdominal aorta is seen. No enlarged abdominal lymphadenopathy is evident. There is a 50 percent narrowing of the proximal SMA. 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 Inferior mesenteric artery is patent. Both main renal arteries are patent without significant stenosis. No obstructive bowel pattern is evident. No ascites is present. However, there is a loculated fluid collection without peripheral rim enhancement measuring 6.2 cm in vertical dimension and 2.2 cm in AP dimension and 1.4 cm in transverse dimension. It is located between the left renal vein and the tail of the pancreas. This was not seen previously. Clinical significance is uncertain. Pseudocyst is a possibility although again there is no rim enhancement to suggest this diagnosis or abscess. No free air or mesenteric edema is seen within the upper abdomen. No obstructive bowel pattern is seen within the upper abdomen. There is diffuse wall thickening of the stomach but the stomach is not distended. The portal vein and branches enhance. The TIPS stent from the portal vein to the hepatic vein is occluded. The splenic vein and SMV enhances. No prominent varices are evident. IMPRESSION: Occlusion of TIPS stent graft. Cirrhosis. No hepatic mass. New finding of a small loculated fluid collection between the left renal vein and the tail of the pancreas. No peripheral rim enhancement is seen. The pancreas appears normal and no peripancreatic soft tissue edema is evident. 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 Electronically signed by: Arnaud Welch MD (01/05/2019 4:05 PM) [facility]
== END | disposition home or self-care (01) ==
LOC: CT 07:28
PROVIDERS: ATTEND Internal Medicine
DX: I70.8 Atherosclerosis of other arteries (principal); K74.3 Primary biliary cirrhosis; Z95.828 Presence of other vascular implants and grafts
CPT/HCPCS: 74170; Q0163; Q9967